=== PATIENT | female | born 1975 | race Caucasian/White ===

== ENCOUNTER → 2017-01-20 | Outpatient (CLI) | payer OTHER ==
--- NOTE | 2017-01-20 12:36 | US ---
EXAMINATION TYPE: US transvaginal DATE OF EXAM: 01/20/2017 8:02 AM COMPARISON: None CLINICAL HISTORY: 41-year-old female with left Ovarian Cyst N83.202. Irregular periods. Date of LMP: 01/04/2017, TECHNIQUE: Transvaginal (TV). Color Doppler and spectral waveform analysis of the right ovarian law musa and veins. FINDINGS: CONTROL AND RECOVERY COMBAT RESCUE NOTES: CT showed right ovarian cyst. Uterus: Anteverted measuring 10.9 x 6.2 x 5.9 cm. There are small cervical nabothian cysts. Endometrial Stripe: 1.3 cm, within normal limits. Right Ovary: 5.8 x 5.3 x 4.3 cm enlarged secondary to a 5.2 cm lesion which demonstrates extensive i nternal reticulations. There is satisfactory arterial and venous flow seen in the peripheral parenchy ma. No vascularity seen within the lesion itself. Left Ovary: 3.2 x 1.9 x 1.3 cm, within normal limits. Mild free fluid seen within the left adnexa. No cul-de-sac free fluid. IMPRESSION: 1. Right ovary enlarged secondary to a 5.2 cm lesion which shows extensive internal reticulations. A hemorrhagic cyst is suspected. Follow-up in 6-8 weeks to ensure resolution. 2. Small amount of free fluid in the left adnexa likely physiologic.
== END | disposition home or self-care (01) ==
LOC: RADUSWWP 07:43
PROVIDERS: ATTEND Obstetrics & Gynecology
DX: N83.8 Other noninflammatory disorders of ovary, fallopian tube and broad ligament (principal)
CPT/HCPCS: 76830; 93976

== ENCOUNTER 2020-06-29 15:54 | Emergency (ER) | payer BC, OTHER ==
[2020-06-29] MEDS ORDERED: ONDANSETRON ODT 8 MG TAB.RAPDIS PO STA (16:35)
[2020-06-29] MEDS ORDERED: SODIUM CHLORIDE 0.9% 1,000 ML IV STA (16:35)
[2020-06-29] MEDS ORDERED: MORPHINE SULFATE 4 MG/ML SYRINGE IV STA (16:35)
[2020-06-29] MEDS ORDERED: ACETAMINOPHEN TAB 500 MG TAB PO STA (16:37)
[2020-06-29 17:15] LABS: Appearance,Urine Clear (Clear); Basophils # (A) 0.1 k/uL (0-0.2); Basophils % (A) 1 %; Bilirubin,Urine Negative (Negative); Blood,Urine Moderate (Negative); Color,Urine Yellow; Eosinophils # (A) 0.3 k/uL (0-0.7); Eosinophils % (A) 3 %; Glucose,Urine (UA) Negative (Negative); HCT 42.8 % (34.0-46.0); HGB 13.9 gm/dL (11.4-16.0); Ketones,Urine Negative (Negative); Leukocyte Esterase,Urine Trace (Negative); Lymphocytes # (A) 1.9 k/uL (1.0-4.8); Lymphocytes % (A) 18 %; MCH 29.2 pg (25.0-35.0); MCHC 32.4 g/dL (31.0-37.0); MCV 90.2 fL (80.0-100.0); Monocytes # (A) 0.8 k/uL (0-1.0); Monocytes % (A) 7 %; Mucus,Urine Rare /hpf; Neutrophils # (A) 7.7 k/uL (1.3-7.7); Neutrophils % (A) 71 %; Nitrite,Urine Negative (Negative); PH, Urine 5.5 (5.0-8.0); Platelet Count 289 k/uL (150-450); Protein,Urine Negative (Negative); RBC 4.74 m/uL (3.80-5.40); RBC,Urine 2 /hpf (0-5); RDW 13.1 % (11.5-15.5); Specific Gravity,Urine 1.024 (1.001-1.035); Squamous Epithelial Cell,Urine 2 /hpf (0-4); Urobilinogen,Urine <2.0 mg/dL (<2.0); WBC 10.9 k/uL (3.8-10.6); WBC,Urine 4 /hpf (0-5)
--- NOTE | 2020-06-29 17:17 | XR ---
EXAMINATION TYPE: XR chest 2V DATE OF EXAM: 06/29/2020 COMPARISON: NONE HISTORY: Fever TECHNIQUE: FINDINGS: Heart and mediastinum are normal. Lungs are clear. Diaphragm is normal. Bony thorax appears normal. IMPRESSION: Normal chest.
[2020-06-29 17:19] VITALS: RESP 18
[2020-06-29 17:21] VITALS: TEMP 100.7
--- NOTE | 2020-06-29 17:22 | ED ---
General Adult HPI - General Chief complaint: Abdominal Pain Stated complaint: Female Source: patient, RN notes reviewed Mode of arrival: ambulatory Limitations: no limitations - History of Present Illness Initial comments: Patient is a 45-year-old female presents to the emergency room for a chief of abdominal pain. She reports this pain has been ongoing for about 1 month ho wever has worsened significantly in the past couple days to the point where it is intolerable. Patient was seen at another emergency center 2 days ago where she had a cat scan performed which demonstrated a 16 cm cystic mass. She was told if things get worse to come to this hospital because we have gynecology on staff. Patient states pain is worsened and she is having pain with urination. Patient denies fevers or chills but is noted to have a temperature of 101.4 upon arrival. She denies nausea or vomiting. She did see her surgeon on Tuesday but was having a "good day" and wanted to follow-up if things worsen again.Patient has no other complaints at this time including shortness of b reath, chest pain, nausea or vomiting, headache, or visual changes. - Related Data Allergies Allergy/AdvReac Type Severity Reaction Status Date / Time No Known Allergies Allergy Verified 06/29/20 16:05 Review of Systems ROS Statement: Those systems with pertinent positive or pertinent negative responses have been documented in the HPI. ROS Other: All systems not noted in ROS Statement are negative. Past Medical History Past Medical History: GERD/Reflux, Hypertension History of Any Multi-Drug Resistant Organisms: None Reported Past Surgical History: Appendectomy, Bowel Resection, Cholecystectomy, Hernia Repair Past Psychological History: No Psychological Hx Reported Smoking Status: Never smoker Past Alcohol Use History: None Reported Past Drug Use History: None Reported General Exam Limitations: no limitations General appearance: alert, in no apparent distress Head exam: Present: atraumatic, normocephalic, normal inspection Eye exam: Present: normal appearance, PERRL, EOMI. Absent: scleral icterus, conjunctival injection, periorbital swelling ENT exam: Present: normal exam, mucous membranes moist Neck exam: Present: normal inspection, full ROM. Absent: tenderness, meningismus, lymphadenopathy Respiratory exam: Present: normal lung sounds bilaterally. Absent: respiratory distress, wheezes, rales, rhonchi, stridor Cardiovascular Exam: Present: regular rate, normal rhythm, normal heart sounds. Absent: systolic murmur, diastolic murmur, rubs, gallop, clicks GI/Abdominal exam: Present: soft, distended, tenderness (Generalized tenderness noted to the abdomen.), normal bowel sounds. Absent: guarding, rebound, rigid Back exam: Absent: CVA tenderness (R), CVA tenderness (L) Neurological exam: Present: alert Course Vital Signs 06/29/20 06/29/20 06/29/20 16:01 17:18 17:21 Temperature 101.4 F H 100.7 F H Pulse Rate 108 H 111 H Respiratory 20 18 Rate Blood Pressure 168/78 176/94 O2 Sat by Pulse 99 96 Oximetry Medical Decision Making - Medical Decision Making Ct from outside facility was reviewed, this does show a 16 cm cystic mass, recommending correlation with CA-125. Physical exam reveals generalized abdominal tenderness. Pt refusing pelvic exam. Patient does have a fever here in the emergency room of unknown origin. No URI symptoms. Urinalysis is unremarkable. Blood culture pending. Chest x-ray negative. CBC does reveal mild leukocytosis 10.9. CMP slightly hemolyzed with a potassium of 5.8. Patient is retaining 700 mL of urine in the bladder, Jenkins catheter initiated. At this time there is concern for cancerous etiology requi ring a higher level of country director onc care that can be provided at this facility. I did speak with Dr. Garcia at [facility] who does accept transfer. He does not request Covid testing as ours is not rapid. - Lab Data Result diagrams: 06/29/20 16:47 06/29/20 16:47 Lab Results 06/29/20 06/29/20 06/29/20 Range/Units 16:47 16:47 16:47 WBC 10.9 H (3.8-10.6) k/uL RBC 4.74 (3.80-5.40) m/uL Hgb 13.9 (11.4-16.0) gm/dL Hct 42.8 (34.0-46.0) % MCV 90.2 (80.0-100.0) fL MCH 29.2 (25.0-35.0) pg MCHC 32.4 (31.0-37.0) g/dL RDW 13.1 (11.5-15.5) % Plt Count 289 (150-450) k/uL Neutrophils % 71 % Lymphocytes % 18 % Monocytes % 7 % Eosinophils % 3 % Basophils % 1 % Neutrophils # 7.7 (1.3-7.7) k/uL Lymphocytes # 1.9 (1.0-4.8) k/uL Monocytes # 0.8 (0-1.0) k/uL Eosinophils # 0.3 (0-0.7) k/uL Basophils # 0.1 (0-0.2) k/uL Sodium 136 L (137-145) mmol/L Potassium 5.8 H (3.5-5.1) mmol/L Chloride 105 (98-107) mmol/L Carbon Dioxide 25 (22-30) mmol/L Anion Gap 6 mmol/L BUN 11 (7-17) mg/dL Creatinine 0.63 (0.52-1.04) mg/dL Est GFR (CKD-EPI)AfAm >90 (>60 ml/min/1.73 sqM) Est GFR (CKD-EPI)NonAf >90 (>60 ml/min/1.73 sqM) Glucose 94 (74-99) mg/dL Plasma Lactic Acid Brando (0.7-2.0) mmol/L Calcium 9.1 (8.4-10.2) mg/dL Total Bilirubin 1.1 (0.2-1.3) mg/dL AST 101 H (14-36) U/L ALT 98 H (4-34) U/L Alkaline Phosphatase 48 (38-126) U/L Total Protein 8.0 (6.3-8.2) g/dL Albumin 4.4 (3.5-5.0) g/dL Amylase 36 (30-110) U/L Lipase 42 (23-300) U/L Urine Color Yellow Urine Appearance Clear (Clear) Urine pH 5.5 (5.0-8.0) Ur Specific [place] 1.024 (1.001-1.035) Urine Protein Negative (Negative) Urine Glucose (UA) Negative (Negative) Urine Ketones Negative (Negative) Urine Blood Moderate H (Negative) Urine Nitrite Negative (Negative) Urine Bilirubin Negative (Negative) Urine Urobilinogen <2.0 (<2.0) mg/dL Ur Leukocyte Esterase Trace H (Negative) Urine RBC 2 (0-5) /hpf Urine WBC 4 (0-5) /hpf Ur Squamous Epith Cells 2 (0-4) /hpf Urine Mucus Rare H (None) /hpf 06/29/20 Range/Units 16:47 WBC (3.8-10.6) k/uL RBC (3.80-5.40) m/uL Hgb (11.4-16.0) gm/dL Hct (34.0-46.0) % MCV (80.0-100.0) fL MCH (25.0-35.0) pg MCHC (31.0-37.0) g/dL RDW (11.5-15.5) % Plt Count (150-450) k/uL Neutrophils % % Lymphocytes % % Monocytes % % Eosinophils % % Basophils % % Neutrophils # (1.3-7.7) k/uL Lymphocytes # (1.0-4.8) k/uL Monocytes # (0-1.0) k/uL Eosinophils # (0-0.7) k/uL Basophils # (0-0.2) k/uL Sodium (137-145) mmol/L Potassium (3.5-5.1) mmol/L Chloride (98-107) mmol/L Carbon Dioxide (22-30) mmol/L Anion Gap mmol/L BUN (7-17) mg/dL Creatinine (0.52-1.04) mg/dL Est GFR (CKD-EPI)AfAm (>60 ml/min/1.73 sqM) Est GFR (CKD-EPI)NonAf (>60 ml/min/1.73 sqM) Glucose (74-99) mg/dL Plasma Lactic Acid Brando 1.1 (0.7-2.0) mmol/L Calcium (8.4-10.2) mg/dL Total Bilirubin (0.2-1.3) mg/dL AST (14-36) U/L ALT (4-34) U/L Alkaline Phosphatase (38-126) U/L Total Protein (6.3-8.2) g/dL Albumin (3.5-5.0) g/dL Amylase (30-110) U/L Lipase (23-300) U/L Urine Color Urine Appearance (Clear) Urine pH (5.0-8.0) Ur Specific [place] (1.001-1.035) Urine Protein (Negative) Urine Glucose (UA) (Negative) Urine Ketones (Negative) Urine Blood (Negative) Urine Nitrite (Negative) Urine Bilirubin (Negative) Urine Urobilinogen (<2.0) mg/dL Ur Leukocyte Esterase (Negative) Urine RBC (0-5) /hpf Urine WBC (0-5) /hpf Ur Squamous Epith Cells (0-4) /hpf Urine Mucus (None) /hpf Disposition Clinical Impression: Ovarian cystic mass Disposition: OTHER INSTITUTION NOT DEFINED Is patient prescribed a controlled substance at d/c from ED?: No Referrals: Dav Leonard DO [Primary Care Provider] - 1-2 days Time of Disposition: 17:58 - Out of Hospital Transfer - Req. Specs Out of Hospital Transfer - Requested Specifics: Other Emergency Center ([facility])
[2020-06-29 17:24] LABS: ALT 98 U/L (4-34); AST 101 U/L (14-36); African American GFR (CKD) >90 (>60 ml/min/1.73 sqM); Albumin 4.4 g/dL (3.5-5.0); Alkaline Phosphatase 48 U/L (38-126); Amylase 36 U/L (30-110); Anion Gap 6 mmol/L; Blood Urea Nitrogen 11 mg/dL (7-17); Calcium 9.1 mg/dL (8.4-10.2); Carbon Dioxide 25 mmol/L (22-30); Chloride 105 mmol/L (98-107); Glucose 94 mg/dL (74-99); Non-African American GFR(CKD) >90 (>60 ml/min/1.73 sqM); Sodium 136 mmol/L (137-145); Total Bilirubin 1.1 mg/dL (0.2-1.3)
[2020-06-29 17:36] LABS: Potassium 5.8 mmol/L (3.5-5.1)
[2020-06-29 18:34] VITALS: BP 149/84; PULSE 104
[2020-06-29] MEDS ORDERED: HYDROmorphone 0.5 MG/0.5 ML SYRINGE IVP STA (18:37)
== END 2020-06-29 19:01 | disposition other institution (70) ==
LOC: EC 15:54
DX: N83.209 Unspecified ovarian cyst, unspecified side (principal); D72.829 Elevated white blood cell count, unspecified
CPT/HCPCS: 51798; 36415; 80053; 82150; 83605; 83690; 85025; 81001; 87040; 71046; 99284; 51702; 96374; 96375; 96361; J2270; J1170

== ENCOUNTER → 2020-12-10 | Outpatient (CLI) | payer BC, OTHER | END | disposition home or self-care (01) | LOC: LABWHC1 12:32 | PROVIDERS: ATTEND Family Medicine | DX: U07.1 COVID-19 (principal) | CPT/HCPCS: U0003; C9803; U0005 ==

== ENCOUNTER → 2021-05-22 | Outpatient (CLI) | payer BC, OTHER ==
--- NOTE | 2021-05-22 12:04 | US ---
EXAMINATION TYPE: US abdomen limited DATE OF EXAM: 05/22/2021 COMPARISON: NONE CLINICAL HISTORY: R94.5 Abn liver function. elevated liver enzymes. cholecystectomy EXAM MEASUREMENTS: Liver Length: 19.2 cm Gallbladder Wall: Surgically absent CBD: unable to visualize Right Kidney: 10.5 x 4.7 x 4.9 cm Technical limitations due to patient's body habitus and large amount of overlying bowel content Pancreas: Obscured by bowel gas Liver: limited evaluation. enlarged, attenuating, unable to penetrate Gallbladder: Surgically absent Evidence for sonographic Frye's sign: no CBD: Obscured by overlying bowel gas Right Kidney: no evidence of hydronephrosis IMPRESSION: 1. Hepatomegaly correlate for hepatic steatosis or hepatitis.
== END | disposition home or self-care (01) ==
LOC: RADUSWWP 11:06
PROVIDERS: ATTEND Family Medicine
DX: R16.0 Hepatomegaly, not elsewhere classified (principal); R94.5 Abnormal results of liver function studies
CPT/HCPCS: 76705

== ENCOUNTER → 2023-01-05 | Outpatient (CLI) | payer OTHER ==
--- NOTE | 2023-01-14 13:25 | P.CEMON ---
7 Day Event monitor note: Patient wore an event monitor for 3 days from 01/05/2023 through 01/09/2023. Findings: Patient's baseline heart rate was sinus rhythm. There were no signficant atrial fibrillation, atrial flutter, or ventricular tachycardia episodes. There were no significant pauses greater than 2 seconds. There were 2 patient activated events which corresponded with normal sinus rhythm Conclusions: 7 day event monitor only worn for 3 days showing normal sinus rhythm. Patient activated event corresponding with sinus rhythm.
--- NOTE | 2023-01-17 10:45 | EM ---
7 Day Event monitor note: Patient wore an event monitor for 3 days from 01/05/2023 through 01/09/2023. Findings: Patient's baseline heart rate was sinus rhythm. There were no significant atrial fibrillation, atrial flutter, or ventricular tachycardia episodes. There were no significant pauses greater than 2 seconds. There were 2 patient activated events which corresponded with normal sinus rhythm Conclusions: 7 day event monitor only worn for 3 days showing normal sinus rhythm. Patient activated event corresponding with sinus rhythm. [facility]
== END | disposition home or self-care (01) ==
LOC: RADECHMAIN 07:47
PROVIDERS: ATTEND Family Medicine
DX: R00.2 Palpitations (principal)
CPT/HCPCS: 93270

== ENCOUNTER → 2023-02-15 | Outpatient (CLI) | payer OTHER ==
--- NOTE | 2023-02-15 12:12 | US ---
EXAMINATION TYPE: US venous doppler duplex LE LT DATE OF EXAM: 02/15/2023 11:57 AM COMPARISON: NONE CLINICAL INDICATION: Female, 47 years old with history of M79.662 PAIN IN LEFT LOWER LEG; Left leg pa in and swelling x couple months SIDE PERFORMED: Left TECHNIQUE: The lower extremity deep venous system is examined utilizing real time linear array sonog trudi with graded compression, doppler sonography and color-flow sonography. VESSELS IMAGED: Common Femoral Vein Deep Femoral Vein Greater Saphenous Vein * Femoral Vein Popliteal Vein Small Saphenous Vein * Proximal Calf Veins (* superficial vessels) Difficult and limited study due to patient body habitus Left Leg: Appears negative for DVT IMPRESSION: Limited examination due to patient's body habitus. No ultrasonic evidence for deep venous thrombosis of the left lower extremity.
== END | disposition home or self-care (01) ==
LOC: RADUSWWP 11:32
PROVIDERS: ATTEND Family Medicine
DX: M79.662 Pain in left lower leg (principal)

== ENCOUNTER 2023-04-06 07:21 | Day surgery (SDC) | payer OTHER ==
[2023-03-30 12:45] VITALS: BMI 49.1
[~2023-04-06 07:21] MED LIST: LACTATED RINGERS 1,000 ML IV SCH; LIDOCAINE 1% (10MG/ML) FOR IV START INTRADERMA PRN
[2023-04-06 07:44] VITALS: TEMP 98.8
[2023-04-06 08:13] LABS: Glucose,Whole Blood 97 mg/dL (70-110)
[2023-04-06] MEDS ORDERED: PROPOFOL 10 MG/ML 20 ML VIAL IV ONE (08:30)
[2023-04-06] MEDS ORDERED: KETAMINE 10 MG/ML 20 ML VIAL ONE (08:30)
[2023-04-06] MEDS ORDERED: LIDOCAINE 2% INJ 20 MG/ML (2 ML VIAL) ONE (08:30)
--- NOTE | 2023-04-06 08:46 | P.PCN ---
Date of Procedure: 04/06/23 Procedure(s) Performed: Brief history: Patient is a pleasant 48-year-old white female scheduled for an elective upper endoscopy as well as colonoscopy as a part of evaluation of epigastric discomfort, intermittent passive regurgitation and screening for colon cancer. She denies any heartburn. She does have long-standing history of diabetes mellitus and obesity and was recently started on Ozempic and since then she started having the above upper GI symptoms. Procedure performed: Esophagogastroduodenoscopy with biopsy Colonoscopy Preoperative diagnosis: Epigastric fullness, nausea vomiting and passive regurgitation Screening for colon cancer Anesthesia: MAC Procedure: After informed consent was obtained from the patient was brought into the endoscopy unit and IV sedation was administered by anesthesia under continuous monitoring. Initially upper endoscopy was done. The Olympus GF 160 video endoscope was inserted inserted into the mouth and esophagus intubated without any difficulty and was gradually advanced into the stomach and duodenum and carefully examined. The bulb and second part of the duodenum appeared normal. The scope was then withdrawn into the stomach adequately insufflated with air and upon careful examination the antrum had scattered erosions and biopsies were done from this area. Mucosa of the body, cardia and fundus appeared normal. The scope was then withdrawn into the esophagus. The GE junction was located at 40 cm to the incisors. Small hiatal hernia noted. It appeared regular with 2 superficial erosions consistent with LA grade B reflux esophagitis. Rest of the esophagus appeared normal. Patient tolerated the procedure well. At this time the patient continued to remain sedation. Initial digital rectal examination was normal. Olympus CF 160 video colonoscope was then inserted into the rectum and gradually advanced to the right colon without any difficulty. Careful examination was performed as the scope was gradually being withdrawn. The prep was fair. The liquid anastomosis appeared normal. Mucosa of the ascending colon, transverse colon, descending colon, sigmoid colon and rectum appeared normal. Retroflexion was performed in the rectum and no lesions were noted. Patient tolerated the procedure well. Impression: 1. Endoscopy revealed mild antral gastritis, small hiatal hernia and LA grade B reflux esophagitis 2. Colonoscopy was within normal limits with no evidence of colorectal neoplasia and normal ileocolic anastomosis in the right colon. Recommendations: Findings of this examination were discussed with the patient as well as her family. She was advised to follow with the biopsy results. Advised to start on omeprazole 20 mg daily and follow antireflux measures. Continue with small frequent meals. Recommend repeat screening colonoscopy in 10 years.
[2023-04-06 09:10] VITALS: BP 146/86; PULSE 79; RESP 15
== END 2023-04-06 09:33 | disposition home or self-care (01) ==
LOC: ORWHC2ENDO 07:21
PROVIDERS: ATTEND Internal Medicine Gastroenterology
DX: Z12.11 Encounter for screening for malignant neoplasm of colon (principal); K29.50 Unspecified chronic gastritis without bleeding; K21.00 Gastro-esophageal reflux disease with esophagitis, without bleeding; K44.9 Diaphragmatic hernia without obstruction or gangrene; G47.33 Obstructive sleep apnea (adult) (pediatric); E07.9 Disorder of thyroid, unspecified; Z79.890 Hormone replacement therapy; Z79.899 Other long term (current) drug therapy
CPT/HCPCS: 88305; 45378; 43239; J2704; J2001